=== PATIENT | male | born 1980 | race Caucasian/White ===

== ENCOUNTER 2017-11-30 18:15 | Emergency (ER) | payer SELFPAY ==
[~2017-11-30] VITALS: Ht 162.6 cm; Wt 55.0 kg
[2017-11-30 18:18] VITALS: BP 138/85; PULSE 83; RESP 14; TEMP 98.3; O2SAT 98
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
[2017-11-30] MEDS ORDERED: CLIN150C14 PO (20:14)
[2017-11-30] MEDS ORDERED: CLINDAMYCIN PHOS 600 MG/4 ML VIAL IM ONE (20:15)
== END 2017-11-30 21:33 | disposition home or self-care (01) ==
LOC: NEPC 18:15
DX: S01.81XA Laceration without foreign body of other part of head, initial encounter (principal); K12.2 Cellulitis and abscess of mouth; F17.200 Nicotine dependence, unspecified, uncomplicated; W22.8XXA Striking against or struck by other objects, initial encounter
CPT/HCPCS: 96372

== ENCOUNTER 2018-04-20 04:02 | Emergency (ER) | payer OTHER ==
[~2018-04-20] VITALS: Ht 165.1 cm; Wt 70.0 kg
[~2018-04-20 04:02] MED LIST: CLIN150C14 PO
[2018-04-20 04:12] VITALS: BP 118/74; PULSE 114; RESP 16; TEMP 98.5; O2SAT 97
--- NOTE | 2018-04-20 04:16 | PD ---
HPI Chief Complaint: Intoxication Time Seen by Provider: 04:13 Travel History International Travel<30 days: No Contact w/Intl Traveler<30days: No Traveled to known affect area: No History of Present Illness HPI This is a 37-year-old male who presents under police custody for medical clearance to go to intermediate. Specifically he is intoxicated and he is too intoxicated to go to intermediate in his current intoxicated state. Symptom onset unknown. Symptoms are moderate, aggravated by alcohol intoxication with no alleviating factors. Patient is a poor historian secondary to being intoxicated. No other obvious associated signs or symptoms. He denies headache , neck pain, chest pain, shortness of breath, abdominal pain, pain in the arms or legs. He has no complaints at this time. [facility] Social History Alcohol Use: Yes ("5 BEERS") Tobacco Use: Yes (1 PPD) Substance Use: Yes ("MARIJUANA") Allergies-Medications (Allergen,Severity, Reaction): Coded Allergies: No Known Allergies (Unverified , 04/20/18) Reported Meds & Prescriptions Reported Meds & Active Scripts Active Active Prescriptions or Reported Medications Unobtainable Review of Systems ROS Limitations: Intoxication Except as stated in HPI: all other systems reviewed are Neg Physical Exam Exam Limitations: Intoxication Narrative GENERAL: This is an intoxicated disheveled male who smells of alcohol. He follows most commands. SKIN: Warm and dry. There is a small abrasion to the frontal scalp. HEAD: Skin as noted above. Normocephalic. EYES: Pupils equal and round reactive to light, extraocular muscles are intact. No scleral icterus. No injection or drainage. ENT: No nasal bleeding or discharge. Mucous membranes pink and moist. NECK: Trachea midline. No JVD. CARDIOVASCULAR: Regular rate and rhythm. No murmur appreciated. RESPIRATORY: No accessory muscle use. Clear to auscultation. Breath sounds equal bilaterally. GASTROINTESTINAL: Abdomen soft, non-tender, nondistended. Hepatic and splenic margins not palpable. MUSCULOSKELETAL: No obvious deformities. No clubbing. No cyanosis. No edema. NEUROLOGICAL: Awake and alert. No obvious cranial nerve deficits. Motor grossly within normal limits. Slurred speech. Data Data Last Documented VS Vital Signs Date Time Temp Pulse Resp B/P (MAP) Pulse Ox O2 Delivery O2 Flow Rate FiO2 04/20/18 04:12 98.5 114 16 118/74 (89) [address] Cerv Spine W/O Contrast (04/20/18 ) Ct Brain W/O Iv Contrast(Rout) (04/20/18 ) Diphenhydramine Inj (Benadryl Inj) (04/20/18 04:45) Ed Discharge Order (04/20/18 05:30) MDM Medical Decision Making Medical Screen Exam Complete: Yes Emergency Medical Condition: Yes Medical Record Reviewed: Yes Differential Diagnosis Alcohol intoxication, closed head injury, polysubstance abuse Narrative Course CT imaging of the brain and cervical spine were ordered. They are negative. The patient became increasingly sober during his hospital stay. The patient has stable for discharge. Diagnosis Primary Impression: Alcohol intoxication Med/Other Pt SpecificInfo: No Change to Meds Scripts Unable to Obtain Active Prescriptions or Reported Meds Disposition: [address] [facility] ENFORCEMNT Condition: Stable Husam Schafer Apr 20, 2018 04:16
[2018-04-20] MEDS ORDERED: diphenhydrAMINE HCL 50 MG/ML VIAL IM ONE (04:45)
--- NOTE | 2018-04-20 05:21 | RADRPT ---
EXAM DATE: 04/20/2018 5:01 AM EDT AGE/SEX: 37 years / Male INDICATIONS: Medical clearance. ETOH CLINICAL DATA: This is the patient's initial encounter. Patient reports that signs and symptoms have been present for 1 day and indicates a pain score of Nonresponsive. MEDICAL/SURGICAL HISTORY: Aneurysm, intracranial. Non-responsive. RADIATION DOSE: 16.46 CTDI (mGy) COMPARISON: No prior exams available for comparison. TECHNIQUE: Contiguous axial images were obtained using helical multirow detector technique. The vol umetric data was post-processed with multiplanar reconstruction in oblique axial, sagittal, and coron al planes. Using automated exposure control and adjustment of the mA and/or kV according to patient s ize, radiation dose was kept as low as reasonably achievable to obtain optimal diagnostic quality cristian ges. FINDINGS: Vertebrae: Normal vertebral body height. Alignment: Normal. No subluxation. C2-3: The bony spinal canal is normal in size. No evidence of disc bulge or herniation. The neural foramina are bilaterally patent. C3-4: The bony spinal canal is normal in size. No evidence of disc bulge or herniation. The neural foramina are bilaterally patent. C4-5: The bony spinal canal is normal in size. No evidence of disc bulge or herniation. The neural foramina are bilaterally patent. C5-6: The bony spinal canal is normal in size. No evidence of disc bulge or herniation. The neural foramina are bilaterally patent. C6-7: The bony spinal canal is normal in size. No evidence of disc bulge or herniation. The neural foramina are bilaterally patent. C7-T1: The bony spinal canal is normal in size. No evidence of disc bulge or herniation. The neura l foramina are bilaterally patent. CONCLUSION: 1. Negative CT Cervical Spine non contrast. Electronically signed by: Leeroy Jensne MD 04/20/2018 5:20 AM EDT
--- NOTE | 2018-04-20 05:22 | RADRPT ---
EXAM DATE: 04/20/2018 5:00 AM EDT AGE/SEX: 37 years / Male INDICATIONS: Medical clearance . ETOH CLINICAL DATA: This is the patient's initial encounter. Patient reports that signs and symptoms have been present for 1 day and indicates a pain score of Nonresponsive. MEDICAL/SURGICAL HISTORY: Non-responsive. Non-responsive. RADIATION DOSE: 56.35 CTDI (mGy) COMPARISON: No prior exams available for comparison. TECHNIQUE: CT of the head without contrast. Using automated exposure control and adjustment of the mA and/or kV according to patient size, radiation dose was kept as low as reasonably achievable to ob tain optimal diagnostic quality images. FINDINGS: Cerebrum: The ventricles are normal for age. No evidence of midline shift, mass lesion, hemorrhage or acute infarction. No extraaxial fluid collections are seen. Posterior Fossa: The cerebellum and brainstem are intact. The 4th ventricle is midline. The cerebe llopontine angle is unremarkable. Extracranial: The visualized portion of the orbits is intact. Skull: The calvaria is intact. No evidence of skull fracture. CONCLUSION: 1. Negative CT Head non contrast. Electronically signed by: Leeroy Jensen MD 04/20/2018 5:21 AM EDT
== END 2018-04-20 05:39 ==
LOC: NEPD 04:02
DX: F10.129 Alcohol abuse with intoxication, unspecified (principal); S00.01XA Abrasion of scalp, initial encounter; F17.210 Nicotine dependence, cigarettes, uncomplicated; X58.XXXA Exposure to other specified factors, initial encounter
CPT/HCPCS: 70450; 72125; 96372; 99283; J1200